=== PATIENT | female | born 1980 | race Caucasian/White ===

== ENCOUNTER 2019-05-25 09:41 | Emergency (ER) | payer OTHER ==
[~2019-05-25] VITALS: Ht 167.6 cm; Wt 97.5 kg
[2019-05-25 09:53] VITALS: BP 113/74
--- NOTE | 2019-05-25 11:18 | Diagnostic Imaging Report ---
Indication: Pain, status post fall 2018 days ago Technique: 3 views left hand Comparison: none Findings: There is a small osseous fragment projecting adjacent to the medial aspect of the third metacarpal head on the AP view. Small osseous fragment anterior to the second proximal interphalangeal joint appears well-corticated and probably does not reflect an acute injury. No other acute fractures or dislocations. Joint spaces are preserved. Impression: Small fragment adjacent to the third metatarsal carpal head, probably a small chip or avulsion fracture. No other acute bony trauma Findings discussed by phone with Dr. Ascencio in the emergency room at the time of interpretation
[2019-05-25 12:22] VITALS: BP 110/86
--- NOTE | 2019-05-25 13:35 | Emergency Room Report ---
History of Present Illness General Chief Complaint: Pain Source: Patient Present Illness HPI 38-year-old female presenting with left hand pain status post fall on May. Patient reported she tripped outside and struck to break her fall with her left hand. Patient is left-hand dominant. Patient reports pain over digits 2 and 3 over MCP and distal to PIP. Patient has been using ice, elevating injury, and taking anti-inflammatories. Patient did not immobilize injury. Patient came in today as pain is not improving and swelling is still persistent. Allergies: Coded Allergies: No Known Allergies (Unverified , 05/25/19) Patient History Now: No Nursing Documentation-[facility] Past Medical History: No Stated History Review of Systems Constitutional: Denies: chills, fever Respiratory: Denies: cough, shortness of breath Cardiovascular: Denies: chest pain, palpitations Gastrointestinal: Denies: abdominal pain, vomiting Musculoskeletal: Reports: joint swelling; Denies: back pain Skin: Denies: rash, lesions Neurological: Denies: headache, focal weakness Physical Exam Vital Signs Date Time Temp Pulse Resp B/P (MAP) Pulse Ox O2 Delivery O2 Flow Rate FiO2 05/25/19 09:45 97.9 89 18 118/72 (87) 98 Room Air Sp02 EP Interpretation: reviewed, normal General Appearance: no apparent distress, alert, GCS 15, non-toxic Neck: full range of motion, supple/symm/no masses Respiratory: chest non-tender, speaking full sentences Cardiovascular #1: regular rate, rhythm, no edema Cardiovascular #2: 2+ radial (R), 2+ radial (L) Musculoskeletal: swelling - Second and third MCP left hand, tender - Tenderness over second and third MCP Skin: no rash, warm/dry Medical Decision Making Diagnostic Impression: Primary Impression: Fracture of metacarpophalangeal (MCP) joint ER Course 38-year-old female status post fall complaining of continued pain to left hand, patient is left-hand dominant Differential includes fracture, avulsion,inflammation, ligament strain, Patient's x-rays are noted of avulsion fracture of the third MCP. patient placed in splint. Patient to follow-up with hand surgeon. Given referral to multiple surgeons patient to follow-up with any one that her insurance covers. Patient understands to keep hand immobile until she is able to follow-up. Other X-Ray Diagnostic Results Other X-Ray Diagnostic Results : # of Views/Limited Vs Complete: Complete Indication: Swelling EP Interpretation: Yes PA Xray: Interpretation reviewed Impression: Other - Avulsion fracture noted on third MCP Last Vital Signs Date Time Temp Pulse Resp B/P (MAP) Pulse Ox O2 Delivery O2 Flow Rate FiO2 05/25/19 12:22 98.6 60 16 110/86 97 Room Air Disposition: HOME, SELF-CARE Condition: Stable Scripts No Active Prescriptions or Reported Meds Referrals: Neil Sanchez MD,Oleg Louie MD, MD, Payman Richard MD Frank, Jonathan MD NON PHYSICIAN (PCP) Patient Instructions: Metacarpal Fracture Additional Instructions: follow up with hand surgeon Nate Ascencio M.D. May 25, 2019 13:35
== END 2019-05-25 12:22 | disposition home or self-care (01) ==
LOC: EMR 10:05
DX: S92.332A Displaced fracture of third metatarsal bone, left foot, initial encounter for closed fracture (principal); W01.0XXA Fall on same level from slipping, tripping and stumbling without subsequent striking against object, initial encounter; Y92.9 Unspecified place or not applicable
CPT/HCPCS: 29125; 73130; Z7502; 99283